=== PATIENT | female | born 1985 ===

== ENCOUNTER → 2021-04-13 08:51 | Outpatient (REF) | payer BC, SELFPAY | LOC: ANHLAB 08:51 | PROVIDERS: PCP Family Medicine; Visit Provider Nurse Practitioner | DX: L81.4 Other melanin hyperpigmentation (principal) | CPT/HCPCS: 88305 ==

== ENCOUNTER → 2021-05-18 09:58 | Outpatient (CLI) | payer BC, SELFPAY ==
[2021-05-18 21:18] LABS: SARS-CoV-2 RNA PCR Negative
== END ==
PROVIDERS: PCP Family Medicine; Visit Provider Family Medicine
DX: J01.90 Acute sinusitis, unspecified (principal); Z20.822 Contact with and (suspected) exposure to COVID-19
CPT/HCPCS: C9803; U0003; U0005

== ENCOUNTER → 2021-05-23 16:02 | Outpatient (REF) | payer BC, SELFPAY | LOC: ANHLAB 16:02 | PROVIDERS: PCP Family Medicine; Visit Provider Nurse Practitioner | DX: D22.4 Melanocytic nevi of scalp and neck (principal) | CPT/HCPCS: 88305 ==

== ENCOUNTER → 2022-09-29 13:13 | Outpatient (CLI) | payer BC, SELFPAY ==
--- NOTE | ~2022-09-29 | US_ITS ---
EXAMINATION: US transvaginal DATE: 09/29/2022 13:39 INDICATION: Abnormal uterine bleeding. Right adnexal pain. TECHNIQUE: Multiple transvaginal sonographic images of the pelvis were obtained. COMPARISON: None. FINDINGS: The uterus measures 8.6 x 4.0 x 4.5 cm. There is no free fluid in the pelvis. The endometrial complex measures 5 mm in thickness. There is an intrauterine device in expected position. The right ovary me asures 2.9 x 2.6 x 3.1 cm. There is vascular flow in right ovary. The left ovary measures 2.6 x 1.8 x 2.4 cm. IMPRESSION: 1. Intrauterine device in expected position. Reviewed, dictated and finalized at location E.
== END ==
PROVIDERS: PCP Nurse Practitioner; Visit Provider Nurse Practitioner
DX: N93.8 Other specified abnormal uterine and vaginal bleeding (principal); R10.2 Pelvic and perineal pain; Z97.5 Presence of (intrauterine) contraceptive device
CPT/HCPCS: 76830